=== PATIENT | male | born 1995 | race African-American/Black ===

== ENCOUNTER 2021-06-30 18:54 | Emergency (ER) | payer OTHER ==
[~2021-06-30] VITALS: Ht 190.5 cm; Wt 87.1 kg
[2021-06-30 19:28] LABS: ABSOLUTE NEUTROPHILS 3.4 thou/uL (1.4-8.2); BASOPHILS 0.6 % (0.0-2.0); EOSINOPHILS 6.3 % (0.0-3.0); HEMATOCRIT 41.2 % (42.0-52.0); HEMOGLOBIN 14.2 gm/dL (14.0-18.0); LYMPHOCYTES 30.5 % (24.0-44.0); MCH 30.3 pg (26.0-34.0); MCHC 34.5 g/dL (28.0-37.0); MCV 87.8 fL (80.0-100.0); MONOCYTES 9.8 % (1.0-8.0); PLATELET COUNT 315 thou/uL (150-400); POLYS 52.8 % (36.0-66.0); RBC 4.69 mil/uL (4.50-6.00); RDW 12.9 % (10.5-14.5); WBC 6.5 thou/uL (4.0-11.0)
[2021-06-30 19:33] LABS: CALCIUM 8.9 mg/dL (8.5-10.1); CREATININE 1.3 mg/dL (0.7-1.3); POTASSIUM 3.4 mmol/L (3.5-5.1)
[2021-06-30] MEDS ORDERED: VISTARIL 25 MG25 M1 PO (20:28)
[2021-06-30 20:42] VITALS: BP 137/92
--- NOTE | 2021-07-01 07:26 | EKG ---
[place] [address] [facility] [address] ELECTROCARDIOGRAM REPORT Name: DANNY WOODS Room #: DEP [facility] [id number] Admission: 06/30/21 Attend Phys: Discharge: 06/30/21 Date of : [birth year] Report #: [id number] [facility] ED Test Date: 2021-06-30 Test Time: 18:59:42 Pat Name: DANNY WOODS Department: Room: Gender: Chief Engineer Production: : 1995 Requested By: Michael Cobb Order Number: [id number] MD: Anand Morejon Measurements Intervals [place] Rate: 88 P: 70 MA: 138 QRS: 50 QRSD: 100 T: 39 QT: 442 QTc: 535 Interpretive Statements Sinus rhythm Left atrial enlargement RSR' in V1 or V2, right VCD or RVH ST elev, probable normal early repol pattern Prolonged QT interval No previous ECG available for comparison Electronically Signed On 07-01-2021 7:26:35 CDT by Anand Morejon [email or web address] <ELECTRONICALLY SIGNED> By: Anand Morejon MD, [facility] 07/01/21 0726 D: [id number] Anand Morejon MD, FACC /EPI
== END 2021-06-30 20:45 | disposition home or self-care (01) ==
LOC: ER 18:54
PROVIDERS: Emergency Medicine
DX: R07.89 Other chest pain (principal); R10.13 Epigastric pain; F41.9 Anxiety disorder, unspecified; Z88.6 Allergy status to analgesic agent; Z88.8 Allergy status to other drugs, medicaments and biological substances